=== PATIENT | male | born 1950 | race Caucasian/White ===

== ENCOUNTER → 2019-10-17 | Outpatient (CLI) | payer BC, MEDICARE | END | disposition home or self-care (01) | LOC: ROC 10-05 15:10 | PROVIDERS: ATTEND Radiology Radiation Oncology | DX: D00.00 Carcinoma in situ of oral cavity, unspecified site (principal) | CPT/HCPCS: 99214; G0463 ==

== ENCOUNTER → 2019-10-20 | Outpatient (CLI) | payer MEDICARE ==
[~2019-10-20] MED LIST: OMNIPAQUE 350 MG/ML, 100ML BOTTLE ONE
== END | disposition home or self-care (01) ==
LOC: CFH 12:45
PROVIDERS: ATTEND Internal Medicine Hematology & Oncology
DX: C77.0 Secondary and unspecified malignant neoplasm of lymph nodes of head, face and neck (principal); C10.9 Malignant neoplasm of oropharynx, unspecified; M50.30 Other cervical disc degeneration, unspecified cervical region; R59.0 Localized enlarged lymph nodes
CPT/HCPCS: 70491; 78815; A9552; Q9967

== ENCOUNTER 2019-10-28 07:03 | Day surgery (SDC) | payer MEDICARE ==
[~2019-10-28] VITALS: Ht 177.8 cm; Wt 98.9 kg
[2019-10-28] MEDS ORDERED: SODIUM CHLORIDE 0.9% 1,000 ML IV SCH (07:37)
[2019-10-28 07:40] VITALS: BP 168/93
[2019-10-28] MEDS ORDERED: PLEASE ENTER HEIGHT AND WEIGHT MC SCH (08:00)
[2019-10-28] MEDS ORDERED: PLEASE ENTER ALLERGIES MC SCH (08:00)
[2019-10-28] MEDS ORDERED: FENTANYL PF 100 MCG/2ML ONE (08:01)
[2019-10-28] MEDS ORDERED: MIDAZOLAM 1 MG/ML, 5ML ONE ×2 (08:01)
[2019-10-28] MEDS ORDERED: NALOXONE 1 MG/ML, 2ML ONE (08:02)
[2019-10-28] MEDS ORDERED: FLUMAZENIL 0.1 MG/1 ML, 5ML ONE (08:02)
[2019-10-28] MEDS ORDERED: LIDOCAINE GEL 2%, 5ML ONE (09:18)
[2019-10-28] MEDS ORDERED: LIDOCAINE 1%, 20ML ONE (09:18)
[2019-10-28] MEDS ORDERED: BENZOCAINE 20% SPRAY 0.5ML ONE (09:31)
[2019-10-28] MEDS ORDERED: LIDOCAINE 1%, 10ML ONE (09:44)
[2019-10-31] MEDS ORDERED: LORA-445 PO (07:19)
== END 2019-10-28 11:20 | disposition home or self-care (01) ==
LOC: OUT 07:03
PROVIDERS: ATTEND Radiology Radiation Oncology
DX: C03.9 Malignant neoplasm of gum, unspecified (principal); Z79.891 Long term (current) use of opiate analgesic; Z79.899 Other long term (current) drug therapy; Z87.891 Personal history of nicotine dependence; Z80.0 Family history of malignant neoplasm of digestive organs
CPT/HCPCS: 49440; 99156; 99157; C1725; C1729; C1769; J2250; J3010; J2310

== ENCOUNTER 2019-10-30 09:53 | Emergency (ER) | payer MEDICARE ==
[~2019-10-30] VITALS: Ht 177.8 cm; Wt 97.5 kg
[2019-10-30 09:59] VITALS: BP 171/94
[2019-10-30] MEDS ORDERED: HYDR-3237 PO (11:04)
--- NOTE | 2019-10-30 12:00 | NUR ---
Patient and caregiver given discharge instructions and they have confirmed that they understand the instructions. Patient ambulatory with steady gait. Pt left with d/c paperwork and dressing supplies and all personal belongings. NADN. No needs expressed.
[2019-10-31] MEDS ORDERED: LORA-445 PO (07:19)
== END 2019-10-30 12:03 | disposition home or self-care (01) ==
LOC: ED 11:48
DX: L76.34 Postprocedural seroma of skin and subcutaneous tissue following other procedure (principal)
CPT/HCPCS: 99281

== ENCOUNTER 2020-01-19 07:47 | Outpatient (CLI) | payer MEDICARE ==
[~2020-01-19 07:47] MED LIST changes: +HYDR-3237 PO; +LORA-445 PO; -OMNIPAQUE 350 MG/ML, 100ML BOTTLE ONE
== END 2020-01-19 23:59 | disposition home or self-care (01) ==
LOC: ROC 07:47
PROVIDERS: ATTEND Radiology Radiation Oncology
DX: Z08 Encounter for follow-up examination after completed treatment for malignant neoplasm (principal); C04.1 Malignant neoplasm of lateral floor of mouth; Z85.818 Personal history of malignant neoplasm of other sites of lip, oral cavity, and pharynx; Z79.899 Other long term (current) drug therapy
CPT/HCPCS: 99213; G0463

== ENCOUNTER 2020-02-01 08:39 | Outpatient (CLI) | payer MEDICARE | END 2020-02-01 23:59 | disposition home or self-care (01) | LOC: RAD 08:39 → EDSTATUS 10:30 → RAD 23:59 | PROVIDERS: ATTEND Radiology Radiation Oncology | DX: Z02.9 Encounter for administrative examinations, unspecified (principal) ==

== ENCOUNTER → 2020-03-14 | Outpatient (CLI) | payer MEDICARE | END | disposition home or self-care (01) | LOC: PETCFH 09:36 | PROVIDERS: ATTEND Internal Medicine Hematology & Oncology | DX: C44.329 Squamous cell carcinoma of skin of other parts of face (principal) | CPT/HCPCS: 78815; A9552 ==

== ENCOUNTER 2020-04-25 07:09 | Day surgery (SDC) | payer MEDICARE ==
[~2020-04-25] VITALS: Ht 177.8 cm; Wt 71.0 kg
[2020-04-25] MEDS ORDERED: CEFAZOLIN PMX 1GM/50ML 50 ML ONE (07:57)
[2020-04-25] MEDS ORDERED: CEFAZOLIN PMX 1GM/50ML 50 ML IV ONE (08:00)
[2020-04-25] MEDS ORDERED: SODIUM CHLORIDE 0.9% 1,000 ML IV SCH (08:00)
[2020-04-25 08:21] VITALS: BP 124/84
[2020-04-25] MEDS ORDERED: FENTANYL PATCH TD (08:29)
[2020-04-25] MEDS ORDERED: SULF1TAB24 PO (08:29)
[2020-04-25] MEDS: maalox/diphenh/lido/sucralfate 5 ML PO PRN ×2 (09:10→09:20)
[2020-04-25] MEDS ORDERED: LIDOCAINE 1%, 20ML ONE (10:29)
[2020-04-25] MEDS ORDERED: FENTANYL PF 100 MCG/2ML ONE ×2 (10:34)
[2020-04-25] MEDS ORDERED: NALOXONE 1 MG/ML, 2ML ONE (10:34)
[2020-04-25] MEDS ORDERED: LIDOCAINE GEL 2%, 5ML ONE (10:42)
[2020-04-25] MEDS ORDERED: BENZOCAINE 20% SPRAY 0.5ML ONE (11:11)
== END 2020-04-25 12:45 | disposition home or self-care (01) ==
LOC: OUT 07:09
PROVIDERS: ATTEND Internal Medicine Hematology & Oncology
DX: Z43.1 Encounter for attention to gastrostomy (principal); C44.329 Squamous cell carcinoma of skin of other parts of face; Z79.899 Other long term (current) drug therapy; Z72.89 Other problems related to lifestyle; Z87.891 Personal history of nicotine dependence
CPT/HCPCS: 49440; C1729; J0690; J3010; J7030; J2310

== ENCOUNTER 2020-04-30 13:08 | Outpatient (CLI) | payer MEDICARE ==
[~2020-04-30 13:08] MED LIST changes: +FENTANYL PATCH TD; +SULF1TAB24 PO
[2020-04-30] MEDS ORDERED: LIDOCAINE 1%, 10ML ONE ×2 (14:25)
[2020-04-30] MEDS ORDERED: LIDOCAINE 1%, 20ML ONE (14:25)
[2020-04-30] MEDS ORDERED: CEFAZOLIN PMX 1GM/50ML 50 ML ONE (14:53)
[2020-05-07] MEDS ORDERED: HYDR-3246 PO (13:29)
== END 2020-04-30 23:59 | disposition home or self-care (01) ==
LOC: OUT 13:08 → EDSTATUS 13:08 → OUT 23:59
PROVIDERS: ATTEND Internal Medicine Hematology & Oncology
DX: C44.329 Squamous cell carcinoma of skin of other parts of face (principal)
CPT/HCPCS: 36561; 76937; 77001; C1788; J0690; J1642